=== PATIENT | female | born 1990 | race Caucasian/White ===

== ENCOUNTER 2019-07-18 20:27 | Emergency (ER) | payer BC ==
[2019-07-18 20:46] LABS: HEMATOCRIT 41.8 % (37.0-47.0); HEMOGLOBIN 13.9 g/dL (12.5-16.0); MEAN CELL VOLUME 94 fl (78-100); MEAN CORPUSCULAR HEMOGLOBIN 31 pg (27-31); MEAN CORPUSCULAR HGB CONC 33 g/dL (33-37); MEAN PLATELET VOLUME 11.4 fl (7.4-10.4); PLATELET COUNT 152 K/mm3 (130-400); RED BLOOD COUNT 4.45 M/mm3 (4.10-5.30); RED CELL DISTRIBUTION WIDTH 12.5 % (11.5-14.5); WHITE BLOOD COUNT 6.2 K/mm3 (4.8-10.8)
[2019-07-18] MEDS ORDERED: ALPRAZOLAM0.5 MG PO (20:47)
[2019-07-18] MEDS ORDERED: ALBUTEROL2.5 MG/3 M IH (20:47)
[2019-07-18] MEDS ORDERED: FLUOXETINE40 MG PO (20:47)
[2019-07-18 20:58] LABS: ALBUMIN 4.3 g/dL (3.5-5.0); POTASSIUM 3.5 mmol/L (3.5-5.1)
[2019-07-18 20:59] LABS: CALCIUM 9.2 mg/dL (8.3-10.5)
[2019-07-18 21:00] LABS: TOTAL PROTEIN 7.7 g/dL (6.4-8.3)
[2019-07-18 21:02] LABS: TOTAL BILIRUBIN 0.2 mg/dL (0.2-1.2)
[2019-07-18 21:15] LABS: D-DIMER 1.01 mg/L FEU (0.15-0.50)
[2019-07-18 21:16] LABS: LYMPHOCYTE 12 % (20-51); MONOCYTE 18 % (3-10); NEUTROPHILS 68 % (42-75)
[2019-07-18] MEDS ORDERED: ZITHROMAX500 M2 PO (22:27)
[2019-07-18 22:34] VITALS: BP 110/65
== END 2019-07-18 22:34 | disposition home or self-care (01) ==
LOC: ED 20:27
PROVIDERS: Physician Assistant
DX: J18.9 Pneumonia, unspecified organism (principal); F41.9 Anxiety disorder, unspecified; Z88.1 Allergy status to other antibiotic agents
CPT/HCPCS: A4216; J0696; J2060; Q9967